=== PATIENT | male | born 1990 | race Caucasian/White ===

== ENCOUNTER 2018-03-21 13:50 | Emergency (ER) ==
[2018-03-21 13:54] VITALS: BP 170/99; TEMP 98; BMI 35.2
--- NOTE | 2018-03-21 14:13 | ED.PDOC ---
General ED Provider: Dr. LAUREN MARQUEZ Chief Complaint: Rectal Pain Stated Complaint: RECTAL PAIN Time Seen by Physician: 14:00 (SEEN WITH VERA GARCIA RN) Mode of Arrival: Walk-In Information Source: Patient Exam Limitations: No limitations Primary Care Provider: GAURAV BENÍTEZ Nursing and Triage Documentation Reviewed and Agree: Yes Reviewed sepsis parameters & appropriate labs ordered?: No (HISTORY OF HEMORROHIDS) System Inflammatory Response Syndrome: Not Applicable Sepsis Protocol: For patient's 13 years and over: Temp is 96.8 and below OR 101 and greater Pulse >90 BPM Resp >20/minute Acutely Altered Mental Status Are patient's symptoms suggestive of a new infection, such as: -Pneumonia -Skin, Soft Tissue -Endocarditis -UTI -Bone, Joint Infection -Implantable Device -Acute Abdominal Infection -Wound Infection -Meningitis -Blood Stream Catheter Infection -Unknown System Inflammatory Response Syndrome: Not Applicable Review of Systems - Review Of Systems Constitutional: Reports: No symptoms Eyes: Reports: No symptoms Ears, Nose, Mouth, Throat: Reports: No symptoms Respiratory: Reports: No symptoms Cardiac: Reports: No symptoms GI: Reports: Other (RECTAL PAIN NO BLEEDING ) : Reports: No symptoms Musculoskeletal: Reports: No symptoms Skin: Reports: No symptoms Neurological: Reports: No symptoms Endocrine: Reports: No symptoms Hematologic/Lymphatic: Reports: No symptoms All Other Systems: Reviewed and Negative Past Medical History - Past Medical History Previously Healthy: Yes Endocrine: Reports: None Cardiovascular: Reports: Hypertension Respiratory: Reports: None Hematological: Reports: None Gastrointestinal: Reports: Other (HEMORROHIDS ) Genitourinary: Reports: None Neuro/Psych: Reports: Migraine Musculoskeletal: Reports: None Cancer: Reports: None Other Pertinent Past Medical History: Syncopy - Surgical History General Surgical History: Reports: Unknown - Family History Family History: Reports: Unknown - Social History Smoking Status: Never smoker Hx Substance Use: No Alcohol Screening: None Physical Exam - Physical Exam Appearance: Well-appearing, No pain distress, Well-nourished Eyes: DE, EOMI, Conjunctiva clear ENT: Ears normal, Nose normal, Oropharynx normal Respiratory: Airway patent, Breath sounds clear, Breath sounds equal, Respirations nonlabored Cardiovascular: RRR, Pulses normal, No rub, No murmur GI/: Nontender (HEMORRHOIDS EXTERNAL IN FLAMMED ), No masses Musculoskeletal: Normal strength, ROM intact, No edema, No calf tenderness Skin: Warm, Dry, Normal color Neurological: Sensation intact, Motor intact, Reflexes intact, Cranial nerves intact, Alert, Oriented Psychiatric: Affect appropriate, Mood appropriate Critical Care Note - Critical Care Note Total Time (mins): 0 Course - Course Vital Signs: Temp Pulse Resp BP Pulse Ox 03/21/18 13:50 98 F 96 H 20 170/99 H 97 Departure - Departure Time of Disposition: 14:14 (DISCUSSED LANCING THE THE SOURCE OF PAIN BUT PT REFUSED ) Disposition: HOME SELF-CARE Discharge Problem: Rectal pain, External hemorrhoid Instructions: Hemorrhoids (ED), Hemorrhoids (DC) Condition: Good Pt referred to PMD for follow-up: Yes IPMP verified?: No Prescriptions: Hydrocortisone [Anusol-Hc] 30 gm RC BID #10 cream..g. Allergies/Adverse Reactions: Allergies No Known Allergies Allergy (Verified 03/21/18 13:55) Home Medications: Ambulatory Orders Citalopram Hydrobromide [Celexa] 40 mg PO DAILY 12/03/13 Hydrocodone/Acetaminophen [Sims 10-325 Tablet] 1 each PO Q8HR #12 tablet Hydrocortisone [Anusol-Hc] 30 gm RC BID #10 cream..g. 03/21/18 Lisinopril 20 mg PO BID 03/21/18
== END 2018-03-21 14:20 | disposition home or self-care (01) ==
LOC: ED 13:50
DX: K64.4 Residual hemorrhoidal skin tags (principal); Z53.9 Procedure and treatment not carried out, unspecified reason
CPT/HCPCS: 99282

== ENCOUNTER 2019-04-14 18:40 | Emergency (ER) ==
[2019-04-14 18:46] VITALS: BP 137/75; TEMP 99.3; BMI 38.5
[2019-04-14] MEDS ORDERED: TORADOL IVP STA (19:08)
--- NOTE | 2019-04-14 20:04 | CT ---
EXAM: CT of the right foot without contrast History: Right ankle pain and swelling. Technique: Multiplanar CT images through the right foot were obtained without the administration of IV contrast Findings: No acute fracture or dislocation. Joint spaces are preserved. No osseous erosions. No a bnormal calcifications or radiopaque foreign bodies. Minimal calcaneal enthesiopathy Impression: No acute osseous abnormality
--- NOTE | 2019-04-14 20:09 | ED.PDOC ---
General ED Provider: Dr. JESSIKA MCDONNELL Chief Complaint: Ankle Pain/Injury Stated Complaint: with no known injury patient complains of right ankle and foot pain for two days. The ankle is swollen. Has a history of gout but does not feel like it today. Pain is worse with ambulation. Denies any fever or chills. Most of the pain is on the acheles tendon. Time Seen by Physician: 19:00 Mode of Arrival: Walk-In Information Source: Patient Nursing and Triage Documentation Reviewed and Agree: Yes Does patient meet sepsis criteria?: No System Inflammatory Response Syndrome: Not Applicable Sepsis Protocol: For patient's 13 years and over: Temp is 96.8 and below OR 101 and greater Pulse >90 BPM Resp >20/minute Acutely Altered Mental Status Are patient's symptoms suggestive of a new infection, such as: -Pneumonia -Skin, Soft Tissue -Endocarditis -UTI -Bone, Joint Infection -Implantable Device -Acute Abdominal Infection -Wound Infection -Meningitis -Blood Stream Catheter Infection -Unknown Musculoskeletal Complaint Exam - Ankle/Foot Complaint/Exam Location of Injury: Reports: Right, Ankle, Foot Mechanism of Injury: Reports: No known trauma Review of Systems - Review Of Systems Constitutional: Reports: No symptoms Eyes: Reports: No symptoms Ears, Nose, Mouth, Throat: Reports: No symptoms Respiratory: Reports: No symptoms Cardiac: Reports: No symptoms GI: Reports: No symptoms : Reports: No symptoms Musculoskeletal: Reports: Joint pain, Joint swelling, Muscle pain Skin: Denies: Change in color Neurological: Reports: No symptoms Endocrine: Reports: No symptoms Hematologic/Lymphatic: Reports: No symptoms All Other Systems: Reviewed and Negative Past Medical History - Past Medical History Previously Healthy: Yes Endocrine: Reports: None Cardiovascular: Reports: Hypertension Respiratory: Reports: None Hematological: Reports: None Gastrointestinal: Reports: Other (HEMORROHIDS ) Genitourinary: Reports: None Neuro/Psych: Reports: Migraine Musculoskeletal: Reports: Gout (mostly on the left great toe ) Cancer: Reports: None Other Pertinent Past Medical History: Syncopy - Surgical History General Surgical History: Reports: Other (Loop recorder placed on the chest 3 years ago. ) - Family History Family History: Reports: Unknown - Social History Smoking Status: Never smoker Hx Substance Use: No Alcohol Screening: None Physical Exam - Physical Exam Appearance: Well-appearing, Obese Pain Distress: Moderate Neck: Supple Respiratory: Airway patent, Breath sounds clear, Breath sounds equal, Respirations nonlabored Cardiovascular: RRR, Pulses normal, No rub, No murmur Musculoskeletal: Limited ROM (Right ankle and foot to plantar and Dorsiflexsion ), Edema (at the right ankle. ) Skin: Warm, Dry, Normal color Neurological: Sensation intact, Motor intact, Reflexes intact, Cranial nerves intact, Alert, Oriented Interpretation - Radiology Interpretation Radiology Interpretation By: Radiologist Radiology Results: Negative Exam Interpreted: CT Scan (ankle and foot ) Re-Evaluation - Re-Evaluation Time of Re-Evaluation: 20:20 Status: Improved Pain Level: much better. Appearance: NAD Critical Care Note - Critical Care Note Total Time (mins): 0 Course - Course Hematology/Chemistry: 04/14/19 19:23 04/14/19 19:23 Orders, Labs, Meds: Lab Review 04/14/19 04/14/19 04/14/19 19:23 19:23 19:23 WBC 9.93 RBC 4.80 Hgb 13.4 L Hct 39.1 L MCV 81.5 MCH 27.9 MCHC 34.3 RDW Coeff of [place] 12.5 Plt Count 385 Immature Gran % (Auto) 0.6 Neut % (Auto) 60.4 Lymph % (Auto) 27.5 [place] % (Auto) 8.5 Eos % (Auto) 2.4 Baso % (Auto) 0.6 Immature Gran # (Auto) 0.1 Neut # (Auto) 6.0 Lymph # (Auto) 2.7 [place] # (Auto) 0.8 Eos # (Auto) 0.2 Baso # (Auto) 0.1 Sodium 138.6 Potassium 3.78 Chloride 103.2 Carbon Dioxide 23.9 Anion Gap 15.28 BUN 10.3 Creatinine 0.81 Estimated GFR (MDRD) 114.00 BUN/Creatinine Ratio 12.71 Glucose 99.3 Lactic Acid 1.28 Uric Acid 7.98 Calcium 9.44 Total Bilirubin 0.39 AST 45.7 ALT 52.5 H Alkaline Phosphatase 88.4 Total Protein 8.03 Albumin 4.66 Globulin 3.37 Albumin/Globulin Ratio 1.38 Orders Category Date Time Status ED IV/MEDIPORT/POWERPORT .ONCE EMERGENCY 04/14/19 19:08 Active CBC W/ AUTO DIFF Stat LAB 04/14/19 19:23 Completed COMPREHENSIVE METABOLIC PANEL Stat LAB 04/14/19 19:23 Completed LACTIC ACID Stat LAB 04/14/19 19:23 Completed PROCALCITONIN Stat LAB 04/14/19 19:23 Received URIC ACID Stat LAB 04/14/19 19:23 Completed 0.9 % Sodium Chloride [Saline Flush] MEDS 04/14/19 19:08 Ordered 1 syr IVF PRN PRN Ketorolac Tromethamine [Toradol] MEDS 04/14/19 19:08 Discontinued 30 mg IVP ONCE STA CT FOOT RIGHT WITHOUT CONTRAST Stat RADS 04/14/19 19:08 Completed Medications Generic Name Dose Route Start Last Admin Trade Name Freq PRN Reason Stop Dose Admin Sodium Chloride 1 syr 04/14/19 19:08 04/14/19 19:37 Saline Flush IVF 1 syr PRN PRN Administration To flush IV Discontinued Medications Generic Name Dose Route Start Last Admin Trade Name Freq PRN Reason Stop Dose Admin Ketorolac Tromethamine 30 mg 04/14/19 19:08 04/14/19 19:35 Toradol IVP 04/14/19 19:09 30 mg ONCE STA Administration Vital Signs: Temp Pulse Resp BP Pulse Ox 04/14/19 18:41 99.3 F 94 H 20 137/75 97 Departure - Departure Time of Disposition: 20:30 Disposition: HOME SELF-CARE Discharge Problem: Enthesopathy of ankle and tarsus, unspecified Ankle sprain Qualifiers: Encounter type: initial encounter Involved ligament of ankle: unspecified ligament Laterality: right Qualified Code(s): S93.401A - Sprain of unspecified ligament of right ankle, initial encounter Instructions: Ankle Sprain (ED) Condition: Stable Pt referred to PMD for follow-up: Yes IPMP verified?: No Additional Instructions: Keep foot elevated Take Motrin as needed for pain and swelling Follow up with PCP in 3 days Prescriptions: Ibuprofen [Motrin] 600 mg PO Q6H PRN #30 tablet PRN Reason: Analgesia Allergies/Adverse Reactions: Allergies No Known Allergies Allergy (Verified 04/14/19 18:43) Home Medications: Ambulatory Orders Citalopram Hydrobromide [Celexa] 40 mg PO DAILY 12/03/13 Lisinopril 10 mg PO BID 03/21/18 Ibuprofen [Motrin] 600 mg PO Q6H PRN #30 tablet 04/14/19 Disposition Discussed With: Patient, Family
== END 2019-04-14 20:33 | disposition home or self-care (01) ==
LOC: ED 18:40
DX: M77.9 Enthesopathy, unspecified (principal); S93.401A Sprain of unspecified ligament of right ankle, initial encounter; X50.1XXA Overexertion from prolonged static or awkward postures, initial encounter
CPT/HCPCS: 36415; 80053; 83605; 84145; 84550; 85025; 96374; 99283